=== PATIENT | female | born 1965 | race Caucasian/White ===

== ENCOUNTER 2024-02-18 11:27 | Emergency (ER) | payer OTHER, SELFPAY ==
[2024-02-18 11:42] VITALS: BP 136/95; PULSE 86; RESP 16; TEMP 36.6; O2SAT 98; BMI 25.0
--- NOTE | 2024-02-18 11:52 | DI.RAD.S_ITS ---
PROCEDURE: XR SHOULDER RT MIN 2V INDICATIONS: fall TECHNIQUE: 3 views of the shoulder were acquired. COMPARISON: None. FINDINGS: Bones: No fractures or dislocations. No suspicious bony lesions. Visualized ribs appear intact. Soft tissues: No suspicious soft tissue calcifications. IMPRESSION: No acute bony abnormality. Dictated by: Manny Plummer M.D. on 02/18/2024 at 12:46 Approved by: Manny Plummer M.D. on 02/18/2024 at 12:46
--- NOTE | 2024-02-18 11:52 | DI.RAD.S_ITS ---
PROCEDURE: XR HUMERUS RT 2V INDICATIONS: Fall TECHNIQUE: 2 views of the humerus were acquired. COMPARISON: None. FINDINGS: Bones: No fractures or dislocations. No suspicious bony lesions. Soft tissues: No suspicious soft tissue calcifications. IMPRESSION: No acute bony abnormality. Dictated by: Manny Plummer M.D. on 02/18/2024 at 12:47 Approved by: Manny Plummer M.D. on 02/18/2024 at 12:50
--- NOTE | 2024-02-18 11:58 | ED_ITS ---
HPI - Extremity Injury (Upper) <Nieves Matthews PA-C - Last Filed: 02/18/24 13:40> General Chief Complaint: Extremity Injury, Upper Stated Complaint: right shoulder pain- fell a couple days ago Time Seen by Provider: 02/18/24 11:47 Source: patient Mode of arrival: Ambulatory History of Present Illness HPI narrative: Patient is a very pleasant 58-year-old female presents to the emergency department with complaints of right shoulder pain. Patient fell down multiple cement stairs several days ago, she has been attempting to take care of the discomfort and pain that she has been having at home. Patient states the pain has not improved, range of motion has not improved. Family is having to help her get dressed. Tylenol has not been controlling her discomfort and pain and she continues to have excruciating pain in the right shoulder. Patient is right-hand dominant. She does not have any pain in the right hand, forearm, elbow or humerus. Patient denies loss of consciousness due to fall. She has no other further complaints currently at this time. Sling was applied by the nurse prior to her being seen and evaluated here in the emergency department. Patient also complains of mild left wrist discomfort Related Data Previous Rx's Medication Instructions Recorded hydrocodone 5 mg-acetaminophen 325 1 tab PO Q4-6H PRN pain #10 tabs 02/18/24 mg tablet Allergies Allergy/AdvReac Type Severity Reaction Status Date / Time Sulfa (Sulfonamide Allergy Muscle Pain Verified 02/18/24 11:45 Antibiotics) Review of Systems <Nieves Matthews PA-C - Last Filed: 02/18/24 13:40> Review of Systems Narrative: Negative except as above Patient History <Nieves Matthews PA-C - Last Filed: 02/18/24 13:40> Social History Smoking Status: Never smoker Smoking Status: Never smoker Substance Use Type: does not use Exam <Nieves Matthews PA-C - Last Filed: 02/18/24 13:40> Initial Vital Signs Initial Vital Signs: Vital Signs Temperature 97.8 F 02/18/24 11:42 Pulse Rate 86 02/18/24 11:42 Respiratory Rate 16 02/18/24 11:42 Blood Pressure 136/95 H 02/18/24 11:42 Pulse Oximetry 98 02/18/24 11:42 Oxygen Delivery Method Room Air 02/18/24 11:42 Const General: cooperative, well developed and well groomed Orientation: Orientation Other: Patient ambulatory, sling was applied prior to her being seen, she is alert and oriented, mild distress. Due to discomfort and pain. Eyes Other: Pupils are PERRLA, EOMs are intact Skin Other: Cap refills intact, pulses are present. No soft tissue swelling noted, Extrem General: capillary refill normal Other: The right upper extremity is currently in a sling was applied by the nurse. Cap refill of the right upper extremity, pulses are present. Patient has full range of motion of the hand, right wrist, she has no pain to the ulnar radius, no pain to the elbow. No pain to the distal humerus. Pain to the mid shaft of the humerus and increasing discomfort and pain into the right shoulder. No pain over the scapula or clavicle. Minor pain to the left wrist, no deformity, no soft tissue swelling, cap refill is preserved. Pulses are present. <Timmy Rodrigues MD - Last Filed: 03/12/24 11:53> Initial Vital Signs Initial Vital Signs: Vital Signs Temperature 97.8 F 02/18/24 11:42 Pulse Rate 86 02/18/24 11:42 Respiratory Rate 16 02/18/24 11:42 Blood Pressure 136/95 H 02/18/24 11:42 Pulse Oximetry 98 02/18/24 11:42 Oxygen Delivery Method Room Air 02/18/24 11:42 Course <Nieves Matthews PA-C - Last Filed: 02/18/24 13:40> Course Course Narrative: Patient seen evaluated in room 1 at the fast track, sling was applied prior to her being seen. Orders Ordered: Discontinued Medications Hydromorphone HCl (Hydromorphone 1 Mg Inj) 1 mg IM NOW ONE Stop: 02/18/24 11:53 Last Admin: 02/18/24 12:06 Dose: 1 mg Documented By: VAZQUEZ Reevaluation(s) Reevaluation #1: Patient checked at 1:10 p.m., states she feels better. The pain medication has kicked in. Currently out of the sling. Holding the arm but states she feels much better. Discussed with her pain medication. She does not have any adverse reactions taking pain medication, she does not get GI upset and does not need any anti nausea medications. Vital Signs Vital signs: Vital Signs - 8 hr 02/18/24 11:42 Temperature 97.8 F Pulse Rate 86 Respiratory Rate 16 Blood Pressure 136/95 H Pulse Oximetry 98 Oxygen Delivery Method Room Air <Timmy Rodrigues MD - Last Filed: 03/12/24 11:53> Orders Ordered: Discontinued Medications Hydromorphone HCl (Hydromorphone 1 Mg Inj) 1 mg IM NOW ONE Stop: 02/18/24 11:53 Last Admin: 02/18/24 12:06 Dose: 1 mg Documented By: VAZQUEZ Vital Signs Vital signs: Vital Signs - 8 hr 02/18/24 11:42 Temperature 97.8 F Pulse Rate 86 Respiratory Rate 16 Blood Pressure 136/95 H Pulse Oximetry 98 Oxygen Delivery Method Room Air MDM - Extremity Injury (Upper) <Nieves Matthews PA-C - Last Filed: 02/18/24 13:40> Imaging Data Extremity x-ray #1: Radiologist's Impression: [address] [address] XRay Report Signed Patient: Adela Jiménez MR#: [id number] : 1965 Acct:[id number] Age/Sex: 58 / F Date of Service: 02/18/24 Loc: ED Accession Number: [id number] Procedure: XR shoulder RT min 2V Ordering Provider: Nieves Matthews PA-C PROCEDURE: XR SHOULDER RT MIN 2V INDICATIONS: fall TECHNIQUE: 3 views of the shoulder were acquired. COMPARISON: None. FINDINGS: Bones: No fractures or dislocations. No suspicious bony lesions. Visualized ribs appear intact. Soft tissues: No suspicious soft tissue calcifications. IMPRESSION: No acute bony abnormality. Dictated by: Manny Plummer M.D. on 02/18/2024 at 12:46 Approved by: Manny Plummer M.D. on 02/18/2024 at 12:46 Extremity x-ray #2: Radiologist's Impression: [address] [address] XRay Report Signed Patient: Adela Jiménez MR#: [id number] : 1965 Acct:[id number] Age/Sex: 58 / F Date of Service: 02/18/24 Loc: ED Accession Number: [id number] Procedure: XR humerus RT 2V Ordering Provider: Nieves Matthews PA-C PROCEDURE: XR HUMERUS RT 2V INDICATIONS: Fall TECHNIQUE: 2 views of the humerus were acquired. COMPARISON: None. FINDINGS: Bones: No fractures or dislocations. No suspicious bony lesions. Soft tissues: No suspicious soft tissue calcifications. IMPRESSION: No acute bony abnormality. Dictated by: Manny Plummer M.D. on 02/18/2024 at 12:47 Approved by: Manny Plummer M.D. on 02/18/2024 at 12:50 Extremity x-ray #3: Radiologist's Impression: Patient: Adela Jiménez MR#: [id number] : 1965 Acct:[id number] Age/Sex: 58 / F Date of Service: 02/18/24 Loc: ED Accession Number: [id number] Procedure: XR wrist LT min 3V Ordering Provider: Nieves Matthews PA-C PROCEDURE: XR WRIST LT MIN 3V INDICATIONS: pain TECHNIQUE: 4 views of the wrist were acquired. COMPARISON: None. FINDINGS / IMPRESSION: Mild degenerative changes of the radiocarpal, 1st carpal-metacarpal, 1st metacarpophalangeal and interphalangeal joints No radiographic evidence of displaced fracture, dislocation or high attenuation soft tissue foreign body. If symptoms persist or worsen, or there is high clinical suspicion of left wrist abnormality, MRI could be performed. Dictated by: Nehemiah Pimentel M.D. on 02/18/2024 at 13:18 Approved by: Nehemiah Pimentel M.D. on 02/18/2024 at 13:21 [facility] Narrative Medical decision making narrative: Patient is a pleasant 50 year female presents to the emergency room department after a fall that she sustained multiple days ago. Patient fell down multiple cement steps landing on her right shoulder. Patient attempted to take care of the discomfort and pain on her own at home. Now presents to the emergency department with her father for increasing discomfort and pain that has not improved since her fall. Patient was placed in a sling prior to being evaluated and seen. Patient complains of right shoulder pain and left Wrist pain. Right shoulder x-ray, negative for acute fracture Right humerus negative for acute fracture left wrist x-ray neg for fracture 1 mg of IM Dilaudid sling to the right arm Supportive therapy education ED precautions given to patient prior to discharge Differential diagnosis, shoulder contusion, AC separation, clavicle fracture, humerus fracture, left ulna radius fracture, wrist sprain, wrist contusion, shoulder sprain, Discharge Plan Departure Patient Disposition: Home Clinical Impression: Injury of Upper Extremity, Sprain and strain of wrist Instructions: DI for Shoulder Sprain Activity Restrictions/Additional Instructions: Your x-rays are all negative for any acute fracture, I would just French wrap to the left wrist. Tylenol as needed, prescription has been sent to the pharmacy. Slow range of motion. Follow up with her primary care doctor as needed. Return to the emergency department as needed. Prescriptions: New hydrocodone-acetaminophen 5-325 mg tablet 1 tab PO Q4-6H PRN (Reason: pain) Qty: 10 0RF Stand Alone Forms: Patient Portal/API ED Sign-out <Timmy Rodrigues MD - Last Filed: 03/12/24 11:53> Cosign ED Attending Cosignature Attestation: I was immediately available in the department for consultation. ?This documentation has been reviewed and I agree with assessment and plan. Supervised by Timmy Rodrigues MD
[2024-02-18] MEDS: HYDROMORPHONE 1 MG INJ IM (12:06)
--- NOTE | 2024-02-18 12:19 | DI.RAD.S_ITS ---
PROCEDURE: XR WRIST LT MIN 3V INDICATIONS: pain TECHNIQUE: 4 views of the wrist were acquired. COMPARISON: None. FINDINGS / IMPRESSION: Mild degenerative changes of the radiocarpal, 1st carpal-metacarpal, 1st metacarpophalangeal and interphalangeal joints No radiographic evidence of displaced fracture, dislocation or high attenuation soft tissue foreign body. If symptoms persist or worsen, or there is high clinical suspicion of left wrist abnormality, MRI could be performed. Dictated by: Nehemiah Pimentel M.D. on 02/18/2024 at 13:18 Approved by: Nehemiah Pimentel M.D. on 02/18/2024 at 13:21
--- NOTE | 2024-02-18 13:14 | PC.NURSE ---
Pt states she fell down some stairs and landed on her arm a few days ago. Pt states she does not think she broke a bone but rather strained a muscle. Pain unrelieved at home with dong
[2024-02-18 13:39] VITALS: PULSE 91; RESP 17; O2SAT 98
--- NOTE | 2024-02-18 13:46 | PC.NURSE ---
Pt ambulated out w/o issue
== END 2024-02-18 13:46 | disposition home or self-care (01) ==
PROVIDERS: Emergency Provider Physician Assistant
DX: S49.91XA Unspecified injury of right shoulder and upper arm, initial encounter (principal); S63.502A Unspecified sprain of left wrist, initial encounter; W10.9XXA Fall (on) (from) unspecified stairs and steps, initial encounter
CPT/HCPCS: 73030; 73060; 73110; 96372; 99283; 99284; J1170